=== PATIENT | female | born 1965 | race Asian ===

== ENCOUNTER 2017-09-17 22:00 | Emergency (ER) | payer OTHER ==
[2017-09-17] MEDS: morphine 4 MG/ML VIAL IV (22:28)
[2017-09-17] MEDS: ONDANSETRON 4 MG INJ IV (22:28)
[2017-09-17 22:37] LABS: ADD MAN DIFF? NO
[2017-09-17 22:40] LABS: BASOPHIL # 0.1 10^3/ul (0.0-0.1); BASOPHILS % 0.7 % (0.0-2.0); EOSINOPHILS # 0.5 10^3/ul (0.0-0.5); EOSINOPHILS % 4.7 % (0.0-7.0); HEMATOCRIT 38.6 % (37.0-47.0); HEMOGLOBIN 12.7 g/dl (12.0-16.0); LYMPHOCYTES # 4.2 10^3/ul (0.8-2.9); MEAN CORPUSCULAR HGB CONC 32.9 g/dl (32.0-37.0); MEAN CORPUSCULAR VOLUME 88.1 fl (82.0-101.0); MEAN PLATELET VOLUME 7.8 fl (7.4-10.4); MONOCYTE # 0.6 10^3/ul (0.3-0.9); MONOCYTES % 6.3 % (0.0-11.0); NEUTROPHIL # 4.2 10^3/ul (1.6-7.5); NEUTROPHILS % 44.1 % (39.0-77.0); PLATELET COUNT 420 10^3/UL (140-415); RED BLOOD COUNT 4.38 10^6/ul (4.20-5.40); RED CELL DISTRIBUTION WIDTH 12.9 % (11.5-14.5)
[2017-09-17 22:40] LABS: WHITE BLOOD COUNT 9.5 10^3/ul (4.8-10.8)
[2017-09-17 22:53] LABS: ADD UMIC YES; UR ASCORBIC ACID NEGATIVE (NEGATIVE); UR BILIRUBIN (Dip) NEGATIVE (NEGATIVE); UR BLOOD (Dip) 2+ mg/dL (NEGATIVE); UR CLARITY CLEAR (CLEAR); UR COLOR YELLOW (YELLOW); UR GLUCOSE (Dip) NEGATIVE (NEGATIVE); UR KETONES (Dip) NEGATIVE (NEGATIVE); UR LEUKOCYTE ESTERASE (Dip) 2+ Leu/ul (NEGATIVE); UR NITRITE (Dip) NEGATIVE (NEGATIVE); UR RBC 15 /HPF (0-5); UR SPECIFIC GRAVITY (Dip) 1.014 (1.003-1.030); UR TOTAL PROTEIN (Dip) NEGATIVE (NEGATIVE); UR UROBILINOGEN (Dip) NEGATIVE (NEGATIVE); UR WBC 4 /HPF (0-5)
[2017-09-17 22:59] LABS: ALANINE AMINOTRANSFERASE 44 IU/L (13-69); ALBUMIN 4.4 g/dl (3.3-4.9); ALBUMIN/GLOBULIN RATIO 1.22; ALKALINE PHOSPHATASE 84 IU/L (42-121); ANION GAP 16 (8-16); ASPARTATE AMINO TRANSFERASE 28 IU/L (15-46); BILIRUBIN,INDIRECT 0.3 mg/dl (0-1.1); BILIRUBIN,TOTAL 0.3 mg/dl (0.2-1.3); BLOOD UREA NITROGEN 15 mg/dl (7-20); CALCIUM 9.1 mg/dl (8.4-10.2); CARBON DIOXIDE 28 mmol/L (21-31); CHLORIDE 105 mmol/L (97-110); CREATININE 0.85 mg/dl (0.44-1.00); GLUCOSE 105 mg/dl (70-220); LIPASE 240 U/L (23-300); SODIUM 145 mmol/L (135-144)
[2017-09-17 23:12] LABS: TROPONIN-I < 0.012 ng/ml (0.000-0.120)
== END 2017-09-18 00:32 | disposition home or self-care (01) ==
LOC: E/R 09-18 00:32
DX: R10.11 Right upper quadrant pain (principal); J45.909 Unspecified asthma, uncomplicated; E11.9 Type 2 diabetes mellitus without complications; R11.10 Vomiting, unspecified; Z79.84 Long term (current) use of oral hypoglycemic drugs
CPT/HCPCS: 36415; 71045; 76705; 80053; 81001; 81025; 83690; 84484; 85025; 96374; 96375; 99285-25

== ENCOUNTER 2018-04-24 05:30 | Inpatient (IN) | payer OTHER ==
[2018-04-24] MEDS ORDERED: POLYMYXIN/BACITRACIN 1L IRRIG (06:57)
[2018-04-24] MEDS ORDERED: ROCURONIUM 50 MG INJ ×2 (07:00→14:12)
[2018-04-24] MEDS ORDERED: SEVOFLURANE 15 MIN (07:00)
[2018-04-24] MEDS ORDERED: HEPARIN 1000 UNITS/ML 10 ML INJ (07:11)
[2018-04-24] MEDS ORDERED: MIDAZOLAM 1 MG/ML 2 ML INJ (07:51)
[2018-04-24] MEDS ORDERED: VANCOMYCIN 1 GM (PMX) 250 ML (08:14)
[2018-04-24] MEDS ORDERED: THROMBIN 5000 UNIT VIAL ×4 (08:19→10:02)
[2018-04-24] MEDS ORDERED: DEXAMETHASONE 4 MG/ML 5 ML INJ (09:41)
[2018-04-24] MEDS: GELATIN SIZE 100 SPONGE (10:42)
[2018-04-24] MEDS: THROMBIN 5000 UNIT VIAL (10:44)
[2018-04-24] MEDS: LIDOCAINE 1%/EPI 30 ML INJ (10:44)
[2018-04-24] MEDS: BUPIVACAINE 0.5% (SDV) 30 ML INJ (10:45)
[2018-04-24] MEDS: VANCOMYCIN 1 GM INJ (11:37)
[2018-04-24] MEDS: POVIDONE IODINE 10% 28.4 GM OINT (11:50)
[2018-04-24] MEDS ORDERED: PHENYLephrine (100 MCG/ML) 10ML SYG (12:19)
[2018-04-24] MEDS ORDERED: PROPOFOL 20 ML (14:12)
[2018-04-24] MEDS ORDERED: LIDOCAINE 2% (SDV) 5 ML INJ (14:12)
[2018-04-24] MEDS ORDERED: SUCCINYLCHOLINE CHLORIDE 100 MG/5 ML SYG IV (14:12)
[2018-04-24] MEDS ORDERED: ONDANSETRON 4 MG INJ (15:25)
[2018-04-24] MEDS ORDERED: CEFAZOLIN 1 GM INJ (15:39)
[2018-04-24] MEDS ORDERED: ONDANSETRON 4 MG INJ IV (16:00)
[2018-04-24] MEDS ORDERED: hydrALAzine 20 MG INJ IV (16:00)
[2018-04-24] MEDS ORDERED: LABETALOL HCL 20MG INJ IV (16:00)
[2018-04-24] MEDS ORDERED: DIPHENHYDRAMINE 50 MG INJ IV (16:00)
[2018-04-24] MEDS ORDERED: MEPERIDINE 25 MG INJ (16:19)
[2018-04-24] MEDS ORDERED: METOCLOPRAMIDE 10 MG INJ (16:20)
[2018-04-24] MEDS ORDERED: BISACODYL 10 MG SUPP PR (16:30)
[2018-04-24] MEDS ORDERED: NALOXONE (0.4 MG/ML) INJ IV (16:30)
[2018-04-24] MEDS: MEPERIDINE 25 MG INJ IV (16:32)
[2018-04-24] MEDS: METOCLOPRAMIDE 10 MG INJ IV (16:32)
[2018-04-24] MEDS: FENTAnyl 50 MCG/ML VIAL IV ×2 (16:51→16:54)
[2018-04-24] MEDS ORDERED: morphine SULFATE/PF (2 MG/2 ML) SYG IV (18:00)
[2018-04-24] MEDS ORDERED: traMADol 50 MG TAB PO (18:00)
[2018-04-24] MEDS: D5W-0.45 NACL + KCL 20 MEQ 1,000 ML IV (18:09)
[2018-04-24] MEDS: VANCOMYCIN 1 GM (PMX) 250 ML IVPB (18:10)
[2018-04-24] MEDS ORDERED: ALBUTEROL/IPRATROPIUM (NEB) 3 ML AMP HHN (18:30)
[2018-04-24] MEDS: DOCUSATE SODIUM 100 MG CAP PO (20:22)
[2018-04-24] MEDS: ATORVASTATIN 10 MG TAB PO (20:22)
[2018-04-24] MEDS: HYDROmorphONE 0.5 MG/0.5 ML SYG IV ×2 (20:23→23:32)
[2018-04-24] MEDS: NEOMYC/POLYMYX/BACIT 30 GM OINT TOP (20:23)
[2018-04-25] MEDS: D5W-0.45 NACL + KCL 20 MEQ 1,000 ML IV ×3 (03:05→16:31)
[2018-04-25] MEDS: HYDROmorphONE 0.5 MG/0.5 ML SYG IV ×7 (03:06→22:12)
[2018-04-25] MEDS: VANCOMYCIN 1 GM (PMX) 250 ML IVPB (04:36)
[2018-04-25] MEDS: PANTOPRAZOLE 40 MG INJ IV (05:27)
[2018-04-25 05:39] LABS: ADD MAN DIFF? NO
[2018-04-25 05:48] LABS: BASOPHILS % 0.1 % (0.0-2.0); EOSINOPHILS % 0.1 % (0.0-7.0); HEMATOCRIT 34.3 % (37.0-47.0); HEMOGLOBIN 11.4 g/dl (12.0-16.0); LYMPHOCYTES # 1.6 10^3/ul (0.8-2.9); MEAN CORPUSCULAR HEMOGLOBIN 30.2 pg (29.0-33.0); MEAN CORPUSCULAR HGB CONC 33.2 g/dl (32.0-37.0); MEAN CORPUSCULAR VOLUME 90.7 fl (82.0-101.0); MEAN PLATELET VOLUME 7.9 fl (7.4-10.4); MONOCYTE # 0.9 10^3/ul (0.3-0.9); MONOCYTES % 6.2 % (0.0-11.0); NEUTROPHIL # 12.1 10^3/ul (1.6-7.5); NEUTROPHILS % 82.1 % (39.0-77.0); PLATELET COUNT 393 10^3/UL (140-415); RED BLOOD COUNT 3.78 10^6/ul (4.20-5.40); RED CELL DISTRIBUTION WIDTH 12.6 % (11.5-14.5)
[2018-04-25 05:48] LABS: WHITE BLOOD COUNT 14.8 10^3/ul (4.8-10.8)
[2018-04-25 06:23] LABS: ADD UMIC YES; UR ASCORBIC ACID NEGATIVE (NEGATIVE); UR BILIRUBIN (Dip) NEGATIVE (NEGATIVE); UR BLOOD (Dip) 2+ mg/dL (NEGATIVE); UR CLARITY CLEAR (CLEAR); UR COLOR YELLOW (YELLOW); UR GLUCOSE (Dip) NEGATIVE (NEGATIVE); UR KETONES (Dip) NEGATIVE (NEGATIVE); UR LEUKOCYTE ESTERASE (Dip) NEGATIVE Leu/ul (NEGATIVE); UR NITRITE (Dip) NEGATIVE (NEGATIVE); UR RBC 8 /HPF (0-5); UR SPECIFIC GRAVITY (Dip) 1.013 (1.003-1.030); UR TOTAL PROTEIN (Dip) NEGATIVE (NEGATIVE); UR UROBILINOGEN (Dip) NEGATIVE (NEGATIVE); UR WBC 2 /HPF (0-5)
[2018-04-25 06:28] LABS: ANION GAP 8 (5-13); BLOOD UREA NITROGEN 10 mg/dl (7-20); CALCIUM 8.7 mg/dl (8.4-10.2); CARBON DIOXIDE 29 mmol/L (21-31); CHLORIDE 100 mmol/L (97-110); CHOL/HDL RATIO 6.1 RATIO; CHOLESTEROL 223 mg/dl (100-200); CREATININE 0.58 mg/dl (0.44-1.00); Estimated GFR > 60 mL/min (>60); GLUCOSE 151 mg/dl (70-220); HDL CHOLESTEROL 36 mg/dl (37-92); LDL CHOLESTEROL,CALCULATED 146 mg/dl; POTASSIUM 4.4 mmol/L (3.5-5.1); SODIUM 137 mmol/L (135-144); TRIGLYCERIDES 207 mg/dl (0-149)
[2018-04-25] MEDS: LEVOTHYROXINE 88 MCG TAB PO (06:42)
[2018-04-25] MEDS: NEOMYC/POLYMYX/BACIT 30 GM OINT TOP ×2 (08:49→20:30)
[2018-04-25] MEDS: DOCUSATE SODIUM 100 MG CAP PO ×2 (08:49→20:28)
[2018-04-25] MEDS: FLUTICASONE/VILANTEROL 100-25 INH (08:49)
[2018-04-25] MEDS: CYCLOBENZAPRINE 10 MG TAB PO (12:20)
[2018-04-25] MEDS: traMADol 50 MG TAB PO ×2 (13:25→20:28)
[2018-04-25] MEDS: ATORVASTATIN 10 MG TAB PO (20:27)
[2018-04-26] MEDS: HYDROmorphONE 0.5 MG/0.5 ML SYG IV ×4 (01:55→22:01)
[2018-04-26] MEDS: D5W-0.45 NACL + KCL 20 MEQ 1,000 ML IV ×3 (02:00→21:22)
[2018-04-26 05:20] LABS: ADD MAN DIFF? NO
[2018-04-26 05:25] LABS: WHITE BLOOD COUNT 20.1 10^3/ul (4.8-10.8)
[2018-04-26 05:25] LABS: BASOPHILS % 0.1 % (0.0-2.0); HEMOGLOBIN 11.3 g/dl (12.0-16.0); LYMPHOCYTES # 1.1 10^3/ul (0.8-2.9); LYMPHOCYTES % 5.6 % (15.0-51.0); MEAN CORPUSCULAR HEMOGLOBIN 29.4 pg (29.0-33.0); MEAN CORPUSCULAR HGB CONC 33.2 g/dl (32.0-37.0); MEAN CORPUSCULAR VOLUME 88.3 fl (82.0-101.0); MEAN PLATELET VOLUME 7.9 fl (7.4-10.4); MONOCYTE # 1.3 10^3/ul (0.3-0.9); MONOCYTES % 6.6 % (0.0-11.0); NEUTROPHIL # 17.5 10^3/ul (1.6-7.5); NEUTROPHILS % 87.1 % (39.0-77.0); PLATELET COUNT 382 10^3/UL (140-415); RED BLOOD COUNT 3.85 10^6/ul (4.20-5.40); RED CELL DISTRIBUTION WIDTH 12.1 % (11.5-14.5)
[2018-04-26 05:52] LABS: ANION GAP 10 (5-13); BLOOD UREA NITROGEN 5 mg/dl (7-20); CALCIUM 8.7 mg/dl (8.4-10.2); CARBON DIOXIDE 27 mmol/L (21-31); CHLORIDE 94 mmol/L (97-110); CREATININE 0.47 mg/dl (0.44-1.00); Estimated GFR > 60 mL/min (>60); GLUCOSE 169 mg/dl (70-220); POTASSIUM 3.8 mmol/L (3.5-5.1); SODIUM 131 mmol/L (135-144)
[2018-04-26] MEDS: PANTOPRAZOLE 40 MG INJ IV (06:54)
[2018-04-26] MEDS: LEVOTHYROXINE 88 MCG TAB PO (06:54)
[2018-04-26] MEDS: CYCLOBENZAPRINE 10 MG TAB PO (06:55)
[2018-04-26] MEDS: traMADol 50 MG TAB PO (06:57)
[2018-04-26] MEDS: NEOMYC/POLYMYX/BACIT 30 GM OINT TOP ×2 (08:44→21:22)
[2018-04-26] MEDS: DOCUSATE SODIUM 100 MG CAP PO ×2 (08:45→21:22)
[2018-04-26] MEDS: FLUTICASONE/VILANTEROL 100-25 INH (08:45)
[2018-04-26] MEDS: ATORVASTATIN 10 MG TAB PO (21:21)
[2018-04-27 01:10] LABS: ADD UMIC YES; UR ASCORBIC ACID NEGATIVE (NEGATIVE); UR BILIRUBIN (Dip) NEGATIVE (NEGATIVE); UR BLOOD (Dip) 3+ mg/dL (NEGATIVE); UR CLARITY CLEAR (CLEAR); UR COLOR STRAW (YELLOW); UR GLUCOSE (Dip) 1+ mg/dL (NEGATIVE); UR KETONES (Dip) NEGATIVE (NEGATIVE); UR LEUKOCYTE ESTERASE (Dip) NEGATIVE Leu/ul (NEGATIVE); UR NITRITE (Dip) NEGATIVE (NEGATIVE); UR RBC 33 /HPF (0-5); UR SPECIFIC GRAVITY (Dip) 1.008 (1.003-1.030); UR TOTAL PROTEIN (Dip) NEGATIVE (NEGATIVE); UR UROBILINOGEN (Dip) NEGATIVE (NEGATIVE); UR WBC 1 /HPF (0-5)
[2018-04-27] MEDS: HYDROmorphONE 0.5 MG/0.5 ML SYG IV ×5 (01:44→20:43)
[2018-04-27 04:56] LABS: ADD MAN DIFF? NO; BASOPHILS % 0.1 % (0.0-2.0); EOSINOPHILS % 0.1 % (0.0-7.0); HEMATOCRIT 32.9 % (37.0-47.0); HEMOGLOBIN 11.2 g/dl (12.0-16.0); LYMPHOCYTES # 1.6 10^3/ul (0.8-2.9); MEAN CORPUSCULAR HEMOGLOBIN 29.6 pg (29.0-33.0); MEAN CORPUSCULAR VOLUME 86.8 fl (82.0-101.0); MEAN PLATELET VOLUME 7.9 fl (7.4-10.4); MONOCYTE # 1.2 10^3/ul (0.3-0.9); MONOCYTES % 6.7 % (0.0-11.0); NEUTROPHIL # 14.5 10^3/ul (1.6-7.5); NEUTROPHILS % 83.6 % (39.0-77.0); PLATELET COUNT 370 10^3/UL (140-415); RED BLOOD COUNT 3.79 10^6/ul (4.20-5.40)
[2018-04-27 04:56] LABS: WHITE BLOOD COUNT 17.4 10^3/ul (4.8-10.8)
[2018-04-27 05:20] LABS: ANION GAP 9 (5-13); BLOOD UREA NITROGEN 5 mg/dl (7-20); CALCIUM 8.7 mg/dl (8.4-10.2); CARBON DIOXIDE 30 mmol/L (21-31); CHLORIDE 95 mmol/L (97-110); CREATININE 0.48 mg/dl (0.44-1.00); Estimated GFR > 60 mL/min (>60); GLUCOSE 137 mg/dl (70-220); POTASSIUM 3.7 mmol/L (3.5-5.1); SODIUM 134 mmol/L (135-144)
[2018-04-27] MEDS: LEVOTHYROXINE 88 MCG TAB PO (06:11)
[2018-04-27] MEDS: PANTOPRAZOLE 40 MG INJ IV (06:11)
[2018-04-27] MEDS: DOCUSATE SODIUM 100 MG CAP PO ×2 (08:42→21:00)
[2018-04-27] MEDS: traMADol 50 MG TAB PO (08:43)
[2018-04-27] MEDS: FLUTICASONE/VILANTEROL 100-25 INH (08:43)
[2018-04-27] MEDS: NEOMYC/POLYMYX/BACIT 30 GM OINT TOP ×2 (08:43→20:44)
[2018-04-27] MEDS: ATORVASTATIN 10 MG TAB PO (21:00)
[2018-04-28] MEDS: ATORVASTATIN 10 MG TAB PO ×2 (00:20→21:40)
[2018-04-28] MEDS: traMADol 50 MG TAB PO ×6 (00:20→19:31)
[2018-04-28] MEDS: LEVOTHYROXINE 88 MCG TAB PO (06:09)
[2018-04-28] MEDS: PANTOPRAZOLE 40 MG INJ IV (06:09)
[2018-04-28] MEDS: FLUTICASONE/VILANTEROL 100-25 INH (09:19)
[2018-04-28] MEDS: DOCUSATE SODIUM 100 MG CAP PO ×2 (09:19→21:40)
[2018-04-28] MEDS: HYDROmorphONE 0.5 MG/0.5 ML SYG IV (09:19)
[2018-04-28] MEDS: NEOMYC/POLYMYX/BACIT 30 GM OINT TOP ×2 (09:23→21:39)
[2018-04-29] MEDS: traMADol 50 MG TAB PO ×5 (01:55→23:12)
[2018-04-29] MEDS: LEVOTHYROXINE 88 MCG TAB PO (06:10)
[2018-04-29] MEDS: PANTOPRAZOLE 40 MG INJ IV (06:10)
[2018-04-29] MEDS: FLUTICASONE/VILANTEROL 100-25 INH (08:58)
[2018-04-29] MEDS: NEOMYC/POLYMYX/BACIT 30 GM OINT TOP ×2 (08:58→22:58)
[2018-04-29] MEDS: DOCUSATE SODIUM 10 MG/ML (10ML CUP) PO ×2 (08:58→22:58)
[2018-04-29] MEDS: ATORVASTATIN 10 MG TAB PO (22:58)
[2018-04-30] MEDS: PANTOPRAZOLE 40 MG INJ IV (06:58)
[2018-04-30] MEDS: LEVOTHYROXINE 88 MCG TAB PO (06:58)
[2018-04-30] MEDS: traMADol 50 MG TAB PO ×2 (07:04→15:20)
[2018-04-30] MEDS: FLUTICASONE/VILANTEROL 100-25 INH (09:20)
[2018-04-30] MEDS: NEOMYC/POLYMYX/BACIT 30 GM OINT TOP (09:20)
[2018-04-30] MEDS: DOCUSATE SODIUM 10 MG/ML (10ML CUP) PO (09:20)
[2018-04-30] MEDS: ONDANSETRON 4 MG INJ IV (17:36)
== END 2018-04-30 18:00 | disposition home health service (06) | DRG 473 ==
LOC: REC 05:30 → MS1 17:45
PROVIDERS: Neurological Surgery
PROC: 0RG2071 Fusion of 2 or more Cervical Vertebral Joints with Autologous Tissue Substitute, Posterior Approach, Posterior Column, Open Approach (ICD-10-PCS; principal; 2018-04-24 07:30)
PROC: 2W50X0Z Removal of Traction Apparatus on Head (ICD-10-PCS; 2018-04-24 07:30)
DX: S12.110A Anterior displaced Type II dens fracture, initial encounter for closed fracture (principal); S12.190A Other displaced fracture of second cervical vertebra, initial encounter for closed fracture; E03.9 Hypothyroidism, unspecified; E78.5 Hyperlipidemia, unspecified; J45.909 Unspecified asthma, uncomplicated
CPT/HCPCS: 71045; 72040; 80048; 80061; 81001; 82962; 85025; 86850; 86900; 86901; 87086; 97110; 97116; 97162; 97530